=== PATIENT | male | born 1955 | race Caucasian/White ===

== ENCOUNTER 2018-06-11 16:17 | Inpatient (IN) ==
[2018-06-11] MEDS ORDERED: CLINDAMYCIN INJ 600 MG in PREMIX 1 EACH IV STA (16:46)
[2018-06-11] MEDS ORDERED: SODIUM CHLORIDE 0.9% 500 ML IV STA (16:46)
[2018-06-11] MEDS ORDERED: PANTOPRAZOLE 40 MG VIAL IV STA (16:46)
[2018-06-11] MEDS ORDERED: THIAMINE INJ 100 MG, FOLIC ACID INJ 1 MG, MAGNESIUM SULF INJ 2 GM, MULTIVITAMIN INJ 10 ... IV ONE (16:46)
[2018-06-11] MEDS ORDERED: VECURONIUM 10 MG VIAL IV ONE ×3 (17:00→19:53)
[2018-06-11] MEDS ORDERED: ETOMIDATE 20 MG/10 ML VIAL IV ONE (17:00)
[2018-06-11 17:04] LABS: PT Patient Result 10.3 SECS
[2018-06-11 17:09] LABS: Basophils # 0.1 10*3/uL (0.0-0.2); Basophils % 1.1 % (0.0-0.8); Eosinophils # 0.5 10*3/uL (0.0-0.87); Eosinophils % 4.5 % (0.00-10.9); Hematocrit 43.7 VOL% (42.0-52.0); Hemoglobin 14.6 GM/DL (14.0-18.0); Immature Granulocytes % 0.4 %; Immature Granulocytes Absolute 0.05 #; Mean Corpuscular HGB Conc 33.4 GM/DL (32-36); Mean Corpuscular Hemoglobin 31 PG (27-34); Mean Platelet Volume 12.6 FL (9.6-12.0); Monocytes # 0.8 10*3/uL (0.11-0.8); Monocytes % 6.4 % (1.7-12.7); Neutrophils # 6.3 10*3/uL (1.4-7.4); Neutrophils % 53.6 % (38.7-73.9); Platelet Count 99 T/CUMM (130-400); Red Blood Count 4.75 MC/CUMM (3.8-5.5); Red Cell Distribution Width 12.7 % (9.3-17.3); White Blood Count 11.7 T/CUMM (4-12)
[2018-06-11] MEDS ORDERED: CLINDAMYCIN INJ 50 ML IV ONE (17:11)
[2018-06-11 17:19] LABS: Ammonia 34 UMOL/L (11-32)
[2018-06-11 17:28] LABS: ABG Base Excess -5.3 MMOL/L (-2.5-2.5); ABG HCO3 20.1 MMOL/L (20-26); ABG Oxygen Saturation 97.4 % (95-100); ABG PH 7.307 (7.35-7.45); ABG TCO2 18.3 MMOL/L (23-27)
[2018-06-11 17:32] LABS: Alanine Aminotransferase 29 U/L (16-61); Albumin 3.8 G/DL (3.4-5.0); Alkaline Phosphatase 61 U/L (45-117); Aspartate Amino Transferase 62 U/L (0-37); Blood Urea Nitrogen 7 MG/DL (7-18); Calcium 8.9 MG/DL (8.5-10.1); Glucose 86 MG/DL (74-106); Osmolality,Calculated 269.8 MOS/KG (273-304); Potassium 3.6 MMOL/L (3.5-5.1); Sodium 137 MMOL/L (136-145); Total Protein 8.2 G/DL (6.4-8.3)
[2018-06-11] MEDS ORDERED: PIPERACILLIN/TAZOBACTAM 3,375 MG VIAL IV ONE (17:42)
[2018-06-11] MEDS ORDERED: SODIUM CHLORIDE 0.9% 100 ML IV ONE (17:43)
[2018-06-11 17:44] LABS: Apearance,Urine CLEAR (Clear); Bacteria,Urine Occasional /HPF (Few); Bilirubin,Urine Negative (Negative); Blood, Urine Negative (Negative); Glucose,Urine (UA) Negative (Negative); Hyaline Casts,Urine 3 /LPF (0-3); Ketones,Urine Negative (Negative); Nitrite,Urine Negative (Negative); Protein,Urine Negative; RBC,Urine 2 /HPF (0-4); Urine Color Straw (Yellow); Urine Specific Gravity 1.002 (1.001-1.035); Urine Urobilinogen < 2.0 EU/DL (0.2-1.0); WBC,Urine 1 /HPF (0-6)
[2018-06-11 17:52] LABS: Barbiturates Screen,Urine Negative (Negative); Benzodiazepines Screen,Urine Negative (Negative); Cannabinoid Screen,Urine Negative (Negative); Opiate Screen,Urine Negative (Negative); Phencyclidine Screen,Urine Negative (Negative)
[2018-06-11 17:54] LABS: PT Patient Result 10.2 SECS; Partial Thromboplastin Time 24.3 SECS (0-40)
[2018-06-11] MEDS: PIPERACILLIN/TAZOBACTAM 3,375 MG in SODIUM CHLORIDE 0.9% 100 ML IV SCH (18:00)
[2018-06-11 18:05] LABS: Platelet Estimate Decreased
[2018-06-11] MEDS ORDERED: ALBUTEROL 2.5 MG/3 ML NEB RESP TX PRN (18:05)
[2018-06-11 18:08] LABS: Salicylate < 2.8 MG/DL (2.8-20)
[2018-06-11 18:10] LABS: Acetaminophen < 2.0 UG/ML (10-30)
[2018-06-11 18:25] LABS: Sedimentation Rate-Westergren 7 MM/HR (0-20)
[2018-06-11] MEDS ORDERED: PROPOFOL 1,000 MG/100 ML BOTTLE IV ONE (18:49)
[2018-06-11] MEDS: PROPOFOL 1,000 MG/100 ML BOTTLE IV SCH (19:02)
[2018-06-11 19:12] LABS: Hepatitis A Ab IgM Quant 0.34 Index; Hepatitis A Ab IgM Result Negative (Negative); Hepatitis B Core IgM Quant < 0.05 Index; Hepatitis B Core IgM Result Negative (Negative); Hepatitis B Surface Ag Quant < 0.10 Index; Hepatitis B Surface Ag Result Negative (Negative); Hepatitis C Virus Ab Quant > 11.00 Index; Hepatitis C Virus Ab Result Positive (Negative)
[2018-06-11] MEDS ORDERED: LORazepam 2 MG/1 ML VIAL IV ONE (19:53)
[2018-06-12] MEDS: PROPOFOL 1,000 MG/100 ML BOTTLE IV SCH ×3 (01:20→08:10)
[2018-06-12] MEDS ORDERED: MIDAZOLAM 100 MG in SODIUM CHLORIDE 0.9% 80 ML IV SCH (02:30)
[2018-06-12] MEDS ORDERED: MIDAZOLAM 100 MG in SODIUM CHLORIDE 0.9% 80 ML IV PRN (02:51)
[2018-06-12 03:26] LABS: ABG Base Excess -5.7 MMOL/L (-2.5-2.5); ABG HCO3 19.8 MMOL/L (20-26); ABG Oxygen Saturation 98.6 % (95-100); ABG PCO2 44.1 MM HG (35-48); ABG PH 7.287 (7.35-7.45); ABG TCO2 18.6 MMOL/L (23-27); Pt O2 Delivery Device Ventilator
[2018-06-12] MEDS: PIPERACILLIN/TAZOBACTAM 3,375 MG in SODIUM CHLORIDE 0.9% 100 ML IV SCH ×2 (03:44→08:32)
[2018-06-12 05:22] LABS: Albumin 2.7 G/DL (3.4-5.0); Bilirubin,Total 0.6 MG/DL (0.2-1.0); Calcium 7.5 MG/DL (8.5-10.1); Osmolality,Calculated 281.8 MOS/KG (273-304); Potassium 4.4 MMOL/L (3.5-5.1); Total Protein 6.5 G/DL (6.4-8.3)
[2018-06-12 06:15] LABS: Basophils # 0.2 10*3/uL (0.0-0.2); Eosinophils # 0.6 10*3/uL (0.0-0.87); Eosinophils % 4.2 % (0.00-10.9); Hematocrit 40.9 VOL% (42.0-52.0); Hemoglobin 13.2 GM/DL (14.0-18.0); Immature Granulocytes % 0.5 %; Immature Granulocytes Absolute 0.08 #; Lymphocytes # 2.6 10*3/uL (1.4-4.0); Lymphocytes % 17.1 % (21.2-54.2); Mean Corpuscular HGB Conc 32.3 GM/DL (32-36); Mean Corpuscular Hemoglobin 30 PG (27-34); Mean Corpuscular Volume 93.4 FL (87-102); Mean Platelet Volume 11.7 FL (9.6-12.0); Monocytes # 1.3 10*3/uL (0.11-0.8); Monocytes % 8.4 % (1.7-12.7); Neutrophils # 10.6 10*3/uL (1.4-7.4); Neutrophils % 68.8 % (38.7-73.9); Platelet Count 201 T/CUMM (130-400); Red Blood Count 4.38 MC/CUMM (3.8-5.5); Red Cell Distribution Width 13.1 % (9.3-17.3); White Blood Count 15.4 T/CUMM (4-12)
[2018-06-12 06:37] LABS: Risk Ratio 3.3; Thyroid Stimulating Hormone 1.09 uIU/ml (0.358-3.74); VLDL CHOLESTEROL 36.2 MG/DL
[2018-06-12 07:04] LABS: PT Patient Result 10.3 SECS
[2018-06-12] MEDS ORDERED: LIDOCAINE 1% 20 ML VIAL MISC INJ ONE (08:46)
[2018-06-12] MEDS ORDERED: PANTOPRAZOLE 40 MG VIAL IV SCH (09:00)
[2018-06-12 10:03] VITALS: BP 122/82
== END 2018-06-12 12:09 | disposition left against medical advice (07) | DRG 166 ==
LOC: EDBD → EDUNIT# → N.ED 16:17 → N.EDINP 18:05 → N.CC 18:57
PROVIDERS: ADMIT Internal Medicine; ATTEND Internal Medicine

== ENCOUNTER 2018-06-12 21:54 | Inpatient (IN) ==
[2018-06-12] MEDS ORDERED: SODIUM CHLORIDE 0.9% 500 ML IV STA (23:10)
[2018-06-13 00:01] LABS: Basophils # 0.1 10*3/uL (0.0-0.2); Basophils % 0.9 % (0.0-0.8); Eosinophils # 0.3 10*3/uL (0.0-0.87); Eosinophils % 2.2 % (0.00-10.9); Hematocrit 40.3 VOL% (42.0-52.0); Hemoglobin 13.4 GM/DL (14.0-18.0); Immature Granulocytes % 0.5 %; Immature Granulocytes Absolute 0.07 #; Lymphocytes # 2.1 10*3/uL (1.4-4.0); Lymphocytes % 14.3 % (21.2-54.2); Mean Corpuscular HGB Conc 33.3 GM/DL (32-36); Mean Corpuscular Hemoglobin 31 PG (27-34); Mean Corpuscular Volume 91.8 FL (87-102); Mean Platelet Volume 10.6 FL (9.6-12.0); Monocytes # 1.6 10*3/uL (0.11-0.8); Monocytes % 10.5 % (1.7-12.7); Neutrophils # 10.6 10*3/uL (1.4-7.4); Neutrophils % 71.6 % (38.7-73.9); Platelet Count 178 T/CUMM (130-400); Red Blood Count 4.39 MC/CUMM (3.8-5.5); Red Cell Distribution Width 12.8 % (9.3-17.3); White Blood Count 14.8 T/CUMM (4-12)
[2018-06-13 00:11] LABS: INR 1.1; PT Patient Result 11.4 SECS; Partial Thromboplastin Time 28.9 SECS (0-40)
[2018-06-13 00:37] LABS: Alanine Aminotransferase 37 U/L (16-61); Albumin 3.3 G/DL (3.4-5.0); Alkaline Phosphatase 56 U/L (45-117); Aspartate Amino Transferase 123 U/L (0-37); Blood Urea Nitrogen 8 MG/DL (7-18); CKMB % 0.4 %; Calcium 8.7 MG/DL (8.5-10.1); Glucose 83 MG/DL (74-106); Osmolality,Calculated 275.4 MOS/KG (273-304); Potassium 3.6 MMOL/L (3.5-5.1); Sodium 140 MMOL/L (136-145); Total Protein 7.3 G/DL (6.4-8.3)
[2018-06-13] MEDS ORDERED: AZITHROMYCIN INJ 500 MG in SODIUM CHLORIDE 0.9% 250 ML IV STA (00:54)
[2018-06-13] MEDS ORDERED: cefTRIAXone 1,000 MG in SODIUM CHLORIDE 0.9% 100 ML IV STA (00:54)
[2018-06-13] MEDS ORDERED: methylPREDNISolone SOD SUC 125 MG/2 ML VIAL IV STA (00:55)
[2018-06-13] MEDS ORDERED: ALBUTEROL NEB SOLN 5 MG/ML 20 ML/BOTTLE CONT NEB STA (00:55)
[2018-06-13] MEDS ORDERED: cefTRIAXone 1,000 MG in SYRINGE 1 EACH IV ONE (01:30)
[2018-06-13] MEDS ORDERED: DOCUSATE SODIUM 100 MG CAPSULE PO PRN (03:28)
[2018-06-13] MEDS ORDERED: ZALEPLON 5 MG CAPSULE PO PRN (03:28)
[2018-06-13] MEDS ORDERED: ACETAMINOPHEN 325 MG TABLET PO PRN (03:28)
[2018-06-13] MEDS ORDERED: ONDANSETRON 4 MG/2 ML VIAL IV PRN (03:28)
[2018-06-13] MEDS ORDERED: LORazepam 2 MG/1 ML VIAL IV PRN (03:45)
[2018-06-13] MEDS ORDERED: ALBUTEROL 2.5 MG/3 ML NEB RESP TX PRN (03:45)
[2018-06-13] MEDS ORDERED: THIAMINE INJ 100 MG, FOLIC ACID INJ 1 MG, MULTIVITAMIN INJ 10 ML in SODIUM CHLORIDE 0.9... IV ONE (04:00)
[2018-06-13] MEDS ORDERED: diphenhydrAMINE CAP 25 MG CAPSULE PO PRN (04:32)
[2018-06-13] MEDS ORDERED: HYDROCORTISONE 2.5% CREAM 30 GM TUBE TOP PRN (04:33)
[2018-06-13] MEDS: PIPERACILLIN/TAZOBACTAM 3,375 MG in SODIUM CHLORIDE 0.9% 100 ML IV SCH ×2 (04:38→13:16)
[2018-06-13 07:06] LABS: Basophils # 0.1 10*3/uL (0.0-0.2); Basophils % 0.5 % (0.0-0.8); Eosinophils % 0.1 % (0.00-10.9); Hematocrit 39.5 VOL% (42.0-52.0); Hemoglobin 13.1 GM/DL (14.0-18.0); Immature Granulocytes % 0.4 %; Immature Granulocytes Absolute 0.04 #; Lymphocytes # 0.4 10*3/uL (1.4-4.0); Lymphocytes % 3.8 % (21.2-54.2); Mean Corpuscular HGB Conc 33.2 GM/DL (32-36); Mean Corpuscular Hemoglobin 30 PG (27-34); Mean Corpuscular Volume 91.2 FL (87-102); Mean Platelet Volume 11.1 FL (9.6-12.0); Monocytes # 0.1 10*3/uL (0.11-0.8); Monocytes % 1.5 % (1.7-12.7); Neutrophils # 8.7 10*3/uL (1.4-7.4); Neutrophils % 93.7 % (38.7-73.9); Platelet Count 143 T/CUMM (130-400); Red Blood Count 4.33 MC/CUMM (3.8-5.5); Red Cell Distribution Width 12.6 % (9.3-17.3); White Blood Count 9.3 T/CUMM (4-12)
[2018-06-13 07:34] LABS: Calcium 8.3 MG/DL (8.5-10.1); Osmolality,Calculated 281.1 MOS/KG (273-304); Potassium 3.7 MMOL/L (3.5-5.1)
[2018-06-13 07:45] LABS: Lymphocytes 6 % (20-55); Segmented Neutrophils 92 % (50-85); Total Cells Counted 100
[2018-06-13 07:46] LABS: Hypochromasia Slight; Platelet Estimate Adequate
[2018-06-13] MEDS: ALBUTEROL/IPRATROPIUM 3 ML NEB RESP TX SCH ×2 (08:07→14:11)
[2018-06-13] MEDS ORDERED: ESCITALOPRAM 10 MG TABLET PO SCH (09:00)
[2018-06-13] MEDS ORDERED: ENOXAPARIN 40 MG/0.4 ML SYRINGE SUBCUT SCH (09:00)
[2018-06-13] MEDS ORDERED: PANTOPRAZOLE 40 MG TABLET PO SCH (09:00)
[2018-06-13] MEDS ORDERED: ASPIRIN EC 81 MG TABLET PO SCH (09:00)
[2018-06-13] MEDS ORDERED: VANCOMYCIN INJ 1,500 MG in SODIUM CHLORIDE 0.9% 500 ML IV SCH (09:00)
[2018-06-13] MEDS ORDERED: hydroCHLOROthiazide 25 MG TABLET PO SCH (09:00)
[2018-06-13] MEDS ORDERED: LISINOPRIL 20 MG TABLET PO SCH (09:00)
[2018-06-13] MEDS: GABAPENTIN 400 MG CAPSULE PO SCH ×2 (09:24→15:26)
[2018-06-13] MEDS ORDERED: SODIUM CHLORIDE 0.9% 1,000 ML IV SCH (14:00)
[2018-06-13 15:26] VITALS: BP 109/76
[2018-06-13] MEDS ORDERED: HYDROCORTISONE 1% CREAM 28 GM TUBE TOP PRN (16:30)
== END 2018-06-13 17:51 | disposition left against medical advice (07) | DRG 194 ==
LOC: N.ED 21:54 → N.EDINP 06-13 02:51 → N.5E 06-13 03:21
PROVIDERS: ADMIT Internal Medicine; ATTEND Internal Medicine